=== PATIENT | male | born 2000 | race Caucasian/White ===

== ENCOUNTER → 2023-01-15 | Outpatient (CLI) | payer OTHER | LOC: M OUTALCOH 07:56 | PROVIDERS: ATTEND Psychiatry & Neurology Psychiatry | DX: F10.10 Alcohol abuse, uncomplicated (principal) ==

== ENCOUNTER 2023-05-07 08:01 | Emergency (ER) | payer OTHER ==
[~2023-05-07] VITALS: Ht 170.2 cm; Wt 97.9 kg
[2023-05-07 08:02] VITALS: BP 111/55; TEMP 97.9; O2SAT 99
== END 2023-05-07 09:26 | disposition left against medical advice (07) ==
LOC: M ED 08:01
DX: Z53.21 Procedure and treatment not carried out due to patient leaving prior to being seen by health care provider (principal)

== ENCOUNTER → 2023-05-13 | Outpatient (CLI) | payer OTHER | LOC: M LAB 17:55 | DX: R41.82 Altered mental status, unspecified (principal) ==